=== PATIENT | female | born 1965 | race Caucasian/White ===

== ENCOUNTER 2020-10-23 14:18 | Emergency (ER) | payer MEDICARE, MEDICAID, SELFPAY ==
[2020-10-23 14:26] VITALS: BP 177/85; PULSE 82; RESP 18; TEMP 36.8; O2SAT 98; BMI 37.8
--- NOTE | 2020-10-23 14:30 | XR_ITS ---
WS: [id number] LEFT KNEE: 3 VIEW(S) TECHNIQUE: AP, oblique(s) and lateral. HISTORY: knee pain, trauma COMPARISON: None available. No fracture or dislocation. No joint space narrowing or osteophytes. No joint effusion. No soft tissue abnormality. XR/XR knee LT 3V* [id number] IMPRESSION: Normal LEFT knee.
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
[2020-10-23] MEDS: HYDROcodone-acetaminophen 5-325 mg Tablet 1 TAB PO (15:18)
[2020-10-23 16:19] VITALS: BP 142/83; PULSE 66; RESP 14; O2SAT 99
== END 2020-10-23 16:20 | disposition home or self-care (01) ==
PROVIDERS: Emergency Provider Nurse Practitioner Family; PCP Family Medicine
DX: S80.02XA Contusion of left knee, initial encounter (principal); W22.8XXA Striking against or struck by other objects, initial encounter
CPT/HCPCS: 12345; 29530; 73562; 99281; 99283; E0114